=== PATIENT | female | born 1940 | race Caucasian/White ===

== ENCOUNTER 2022-08-05 10:37 | Outpatient (RCR) | payer MEDICARE | END 2022-09-01 | disposition home or self-care (01) | PROVIDERS: ATTEND Family Medicine | DX: R47.81 Slurred speech (principal) ==

== ENCOUNTER 2022-09-29 12:56 | Outpatient (RCR) | payer MEDICARE | END 2022-10-02 | disposition home or self-care (01) | PROVIDERS: ATTEND Family Medicine | DX: R90.82 White matter disease, unspecified (principal); R47.81 Slurred speech ==

== ENCOUNTER 2022-10-27 11:13 | Outpatient (RCR) | payer MEDICARE | END 2022-11-02 | disposition home or self-care (01) | PROVIDERS: ATTEND Family Medicine | DX: R90.82 White matter disease, unspecified (principal); R47.81 Slurred speech ==

== ENCOUNTER 2022-11-03 11:06 | Outpatient (RCR) | payer MEDICARE | END 2022-11-30 | disposition home or self-care (01) | PROVIDERS: ATTEND Family Medicine | DX: R47.81 Slurred speech (principal); R90.82 White matter disease, unspecified ==